=== PATIENT | female | born 1965 | race Two or more races ===

== ENCOUNTER 2016-12-20 10:24 | Emergency (ER) | payer OTHER ==
[~2016-12-20] VITALS: Ht 167.6 cm; Wt 94.3 kg
[~2016-12-20 10:24] MED LIST: BACTRIM DS TAB1 EAC1 ORAL; IBUPROFEN600 MG ORAL; LOSARTAN POTASS50 MG ORAL; METFORMIN HCL500 M1 ORAL; NORCO 5-325 TA1 EACH ORAL; TRICOR145 MG ORAL; VALIUM10 MG ORAL
[2016-12-20 11:01] VITALS: BP 150/111
[2016-12-20] MEDS ORDERED: Ipratropium 0.02% Inh Soln 2.5ml UD HHN ONE (11:15)
[2016-12-20] MEDS ORDERED: Azithromycin 500 MG in NS 275 ML IV ONE (11:15)
[2016-12-20] MEDS ORDERED: fentaNYL 100 mcg/2 mL IV ONE (11:15)
[2016-12-20] MEDS ORDERED: Azithromycin Inj IV ONE (11:28)
[2016-12-20] MEDS: Albuterol ud Inhalation HHN SCH ×3 (11:28→12:34)
[2016-12-20 11:51] LABS: BASOPHILS % (AUTO) 1.2 % (0.0-2.0); EOSINOPHILS % (AUTO) 1.8 % (0.0-3.0); LYMPHOCYTES % (AUTO) 23.1 % (20.0-45.0); MEAN CORPUSCULAR HEMOGLOBIN 31.1 PG (27.0-31.0); MEAN CORPUSCULAR HGB CONC 34.4 G/DL (32.0-36.0); MEAN CORPUSCULAR VOLUME 91 FL (80-99); MEAN PLATELET VOLUME 6.9 FL (6.5-10.1); MONOCYTES % (AUTO) 6.9 % (1.0-10.0); NEUTROPHILS % (AUTO) 67.1 % (45.0-75.0); PLATELET COUNT 251 K/UL (150-450); RED BLOOD COUNT 4.76 M/UL (4.20-5.40); RED CELL DISTRIBUTION WIDTH 12.8 % (11.6-14.8); WHITE BLOOD COUNT 5.1 K/UL (4.8-10.8)
[2016-12-20 11:53] LABS: APPEARANCE,URINE CLEAR; KETONES,URINE NEGATIVE (NEGATIVE); LEUKOCYTE ESTERASE ,URINE NEGATIVE (NEGATIVE); NITRITE,URINE NEGATIVE (NEGATIVE); PH,URINE 6 (4.5-8.0); PROTEIN,URINE 1+ (NEGATIVE); UROBILINOGEN,URINE NORMAL MG/DL (0.0-1.0)
[2016-12-20 11:55] LABS: PROTHROMBIN TIME 10.1 SEC (9.30-11.50)
[2016-12-20 12:02] LABS: ALANINE AMINOTRANSFERASE 33 U/L (3-33); ALBUMIN/GLOBULIN RATIO 1.4 (1.0-2.7); ANION GAP 19 (5-15); ASPARTATE AMINO TRANSFERASE 27 U/L (5-40); CALCIUM 10.1 mg/dL (8.6-10.2); CARBON DIOXIDE 23 mEQ/L (20-30); CHLORIDE 97 mEQ/L (98-107); CREATININE 0.8 mg/dL (0.5-0.9); GLOMERULAR FILTRATION RATE > 60 mL/min (>60); HEMOLYSIS 10; POTASSIUM 3.8 mEQ/L (3.4-4.9); SODIUM 139 mEQ/L (135-145); TOTAL PROTEIN 7.9 g/dL (6.6-8.7); TROPONIN I < 0.30 ng/mL (<=0.30)
[2016-12-20 12:03] LABS: BACTERIA,URINE FEW /HPF; RBC,URINE 0-2 /HPF (0 - 2); SQUAMOUS EPITHELIAL CELL,UR FEW /LPF (NONE/OCC); WBC,URINE 0-2 /HPF (0 - 2)
[2016-12-20 12:05] LABS: REFLEX LACTIC ACID YES OR NO YES
--- NOTE | 2016-12-20 12:29 | Diagnostic Imaging Report ---
Indication: COUGH Technique: Single portable AP view of the chest. Findings: Comparison: 02/08/2015 The bones and extra pulmonary soft tissues, cardiomediastinal silhouette, pulmonary vasculature and parenchyma, and pleural surfaces remain unremarkable. IMPRESSION: Negative portable AP chest, unchanged.
[2016-12-20 13:12] VITALS: BP 111/65
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
[2016-12-20] MEDS ORDERED: Oxycodone/Acetaminophen 5-325 ORAL ONE (14:30)
[2016-12-20 15:18] VITALS: BP 132/83
--- NOTE | 2016-12-20 15:34 | Diagnostic Imaging Report ---
Indications: Chest pain Technique: Continuous helical CT imaging of the thorax was performed with automatic exposure control, following bolus intravenous administration of nonionic iodine contrast, on a Siemens sensation [address] scanner. Axial images reconstructed at 3 mm slice thickness and 1.5 mm interval. Coronal and sagittal images were reconstructed at 3 mm slice thickness. Coronal and sagittal two-dimensional maximum intensity projection and three-dimensional volume-rendered images were reconstructed on a stand alone workstation. CTDI volume(s): 13x2, 45 mGy Total DLP: 1192 mGy-cm Findings: Comparison: Chest radiograph 02/08/2015 The main pulmonary artery, right and left pulmonary arteries, and pulmonary artery branches to the level of third order branching are patent and well-opacified. No intraluminal filling defects are demonstrated. Thoracic aorta and great vessels are patent and well-opacified, normal in caliber and configuration. No evidence of aneurysm, dissection, or leak. Heart normal size. No pericardial abnormality. No mediastinal or hilar enlarged lymph nodes, other abnormal mass or fluid collection. Lungs are symmetrically inflated, left greater than right. Elevation of right hemidiaphragm with overlying linear densities. Patchy groundglass opacities in both lung bases. No pleural abnormality. Chest wall soft tissues nonfocal. Small osteophytes in the thoracic spine. Liver parenchyma diffusely decreased attenuation. IMPRESSION: No evidence of pulmonary embolism Pulmonary bibasal patchy groundglass opacities--atelectasis versus edema versus inflammation Chronic elevation right hemidiaphragm with overlying subsegmental atelectasis versus scarring Hepatic steatosis Mild degenerative spondylosis
[2016-12-20] MEDS ORDERED: ALBUTEROL SULF8.5 GM INH (15:55)
[2016-12-20] MEDS ORDERED: IBUPROFEN600 MG ORAL (15:55)
[2016-12-20] MEDS ORDERED: HYDROCODONE-HOMA5 ML PO (15:55)
[2016-12-20] MEDS ORDERED: AZITHROMYCIN250 MG ORAL (15:55)
[2016-12-20 16:12] VITALS: BP 132/79
--- NOTE | 2016-12-22 15:51 | Cardiology Report ---
APPROVED REPORT EKG Measurement Heart [id number] Sinus tachycardia Nonspecific T wave abnormality Abnormal ECG
== END 2016-12-20 16:16 | disposition home or self-care (01) ==
LOC: EMR 11:13
DX: J02.9 Acute pharyngitis, unspecified (principal); J98.01 Acute bronchospasm; R07.9 Chest pain, unspecified; I10 Essential (primary) hypertension; E11.9 Type 2 diabetes mellitus without complications
CPT/HCPCS: 36415; 71010; 71275; 80053; 81003; 83605; 84484; 85025; 85610; 85730; 93005; 94640; 94664; 96360; 96361; 96374; 96375; 99284; J0456; J2405; J3010; J7050; Q9967

== ENCOUNTER 2017-03-11 19:01 | Emergency (ER) | payer OTHER ==
[~2017-03-11] VITALS: Ht 167.6 cm; Wt 95.3 kg
[~2017-03-11 19:01] MED LIST changes: +ALBUTEROL SULF8.5 GM INH; +AZITHROMYCIN250 MG ORAL; +HYDROCODONE-HOMA5 ML PO
[2017-03-11] MEDS ORDERED: CYCLOBENZAPRINE10 MG ORAL (19:20)
[2017-03-11] MEDS ORDERED: CEPHALEXIN500 M1 ORAL (19:20)
[2017-03-11] MEDS ORDERED: GLIPIZIDE5 MG ORAL (19:20)
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
[2017-03-11] MEDS ORDERED: Norco 7.5mg/325mg tab ORAL ONE (19:45)
[2017-03-11 19:58] VITALS: BP 161/91
[2017-03-11] MEDS ORDERED: NORCO 5-325 TA1 EACH ORAL (20:38)
[2017-03-11 21:00] VITALS: BP 161/91
--- NOTE | 2017-03-13 09:19 | Diagnostic Imaging Report ---
Indication: Pain 3 views of the left knee were obtained. Findings: There is some irregularity at the tibial spines. The acuity of this finding is unknown. Consider cross-sectional imaging for further evaluation is warranted clinically. There is no joint effusion. Alignment is normal. Impression: Irregularity of the tibial spines. Acuity indeterminate. Consider CT or MR for further evaluation.
== END 2017-03-11 21:00 | disposition home or self-care (01) ==
LOC: EMR 19:49
DX: S83.92XA Sprain of unspecified site of left knee, initial encounter (principal); V49.50XA Passenger injured in collision with unspecified motor vehicles in traffic accident, initial encounter; Y92.410 Unspecified street and highway as the place of occurrence of the external cause; M54.2 Cervicalgia; M54.5 Low back pain; I10 Essential (primary) hypertension; E11.9 Type 2 diabetes mellitus without complications
CPT/HCPCS: 29530; 99283

== ENCOUNTER 2017-04-06 20:25 | Emergency (ER) | payer OTHER ==
[~2017-04-06] VITALS: Ht 170.2 cm; Wt 95.3 kg
[~2017-04-06 20:25] MED LIST changes: +CEPHALEXIN500 M1 ORAL; +CYCLOBENZAPRINE10 MG ORAL; +GLIPIZIDE5 MG ORAL
[2017-04-06 20:34] VITALS: BP 150/91
[2017-04-06] MEDS ORDERED: OFLOXACIN10 ML OP (20:56)
[2017-04-06] MEDS ORDERED: AUGMENTIN 875-1 EAC1 ORAL (20:56)
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
[2017-04-06] MEDS: Augmentin 875mg Tab ORAL ONE (21:12)
[2017-04-06] MEDS: Oxycodone/Acetaminophen 5-325 ORAL ONE (21:12)
[2017-04-06 21:19] VITALS: BP 147/83
== END 2017-04-06 21:20 | disposition home or self-care (01) ==
LOC: EMR 21:04
DX: H60.91 Unspecified otitis externa, right ear (principal); I10 Essential (primary) hypertension; E11.9 Type 2 diabetes mellitus without complications
CPT/HCPCS: 99284

== ENCOUNTER 2017-12-14 13:50 | Emergency (ER) | payer OTHER ==
[~2017-12-14] VITALS: Ht 167.6 cm; Wt 95.3 kg
[~2017-12-14 13:50] MED LIST changes: +AUGMENTIN 875-1 EAC1 ORAL; +OFLOXACIN10 ML OP
[2017-12-14 14:22] VITALS: BP 131/81
[2017-12-14] MEDS ORDERED: METFORMIN HCL1000 M1 ORAL (14:22)
[2017-12-14] MEDS ORDERED: ASPIR 8181 MG ORAL (14:22)
[2017-12-14] MEDS ORDERED: JANUVIA25 MG ORAL (14:22)
[2017-12-14] MEDS ORDERED: VITAMIN D1000 UNI1 ORAL (14:22)
[2017-12-14] MEDS ORDERED: Metoclopramide 10mg/2ml Inj IVP ONE (14:45)
[2017-12-14] MEDS ORDERED: DiphenhydrAMINE 50mg/ml Inj IVP ONE (14:45)
[2017-12-14 14:57] LABS: HEMATOCRIT 42.4 % (37.0-47.0); MEAN CORPUSCULAR VOLUME 85 FL (80-99); PLATELET COUNT 278 K/UL (150-450); RED BLOOD COUNT 4.99 M/UL (4.20-5.40); RED CELL DISTRIBUTION WIDTH 12.9 % (11.6-14.8)
--- NOTE | 2017-12-14 15:05 | Emergency Room Report ---
History of Present Illness General Chief Complaint: Abdominal Pain Source: Patient, Medical Record Present Illness HPI Patient presents with complaints of fairly diffuse abdominal pain Patient reports that on Tuesday she had seafood in [facility] She also had fruit Soon after that began having vomiting and diarrhea She has had multiple episodes of vomiting and diarrhea Diffuse abdominal cramping as well Denies any fevers denies any chest pain or short of breath Pain and cramping is 3 out of 10 patient has had previous cholecystectomy otherwise denies any recent procedures Allergies: Coded Allergies: NO KNOWN ALLERGIES (Unverified Allergy, Unknown, 02/08/15) Patient History Past Medical History: see triage record Pertinent Family History: none Last Menstrual Period: 11/19/17 Reviewed Nursing Documentation: PMH: Agreed; PSxH: Agreed Nursing Documentation-PMH Past Medical History: No History, Except For Hx Hypertension: Yes Hx Diabetes: Yes - Type 2 Review of Systems All Other Systems: negative except mentioned in HPI Physical Exam Vital Signs Date Time Temp Pulse Resp B/P (MAP) Pulse Ox O2 Delivery O2 Flow Rate FiO2 12/14/17 14:15 99.1 118 20 131/81 96 Room Air 99.1 Sp02 EP Interpretation: reviewed, normal General Appearance: no apparent distress Head: normocephalic, atraumatic Eyes: bilateral eye PERRL, bilateral eye EOMI ENT: hearing grossly normal, normal pharynx, TMs + canals normal, uvula midline Neck: full range of motion, supple, no meningismus, no bony tend Respiratory: lungs clear, normal breath sounds, no rhonchi, no respiratory distress, no retraction, no accessory muscle use Cardiovascular #1: normal peripheral pulses, regular rate, rhythm, no edema, no gallop, no JVD, no murmur Gastrointestinal: soft, no mass, no organomegaly, non-distended, no guarding, no hernia, no pulsatile mass, no rebound, other - Hyperactive bowel sounds Genitourinary: no CVA tenderness Musculoskeletal: normal inspection Neurologic: oriented x3, responsive, sticker hand III-XII nml as tested, motor strength/ tone normal, sensory intact Psychiatric: mood/affect normal Skin: normal color, no rash, warm/dry, palpation normal Lymphatic: normal inspection, no adenopathy Medical Decision Making Diagnostic Impression: Primary Impression: Pancreatitis Additional Impressions: Abdominal pain Vomiting Diarrhea ER Course With the history exam and presentation, multiple differentials considered, including but not limited to appendicitis, gastritis, cholecystitis, diverticulitis Given the patient's history of recent food intake and the vomiting and diarrhea likely food borne pathology also entertained Patient shows some shift in the white blood cell count Pancreas showing elevation of lipase Patient's CT does not show any acute pathology Patient has done significantly better after further intervention At this time given the elevated lipase at the discussed with her inpatient stay versus outpatient disposition Patient reports that she has had history of pancreatitis in the past She does feel significantly better and at this time we'll attempt outpatient trial She was put on antibiotics as well given the presentation Labs Test 12/14/17 14:45 White Blood Count 10.0 K/UL (4.8-10.8) Red Blood Count 4.99 M/UL (4.20-5.40) Hemoglobin 14.0 G/DL (12.0-16.0) Hematocrit 42.4 % (37.0-47.0) Mean Corpuscular Volume 85 FL (80-99) Mean Corpuscular Hemoglobin 28.1 PG (27.0-31.0) Mean Corpuscular Hemoglobin Concent 33.1 G/DL (32.0-36.0) Red Cell Distribution Width 12.9 % (11.6-14.8) Platelet Count 278 K/UL (150-450) Mean Platelet Volume 6.6 FL (6.5-10.1) Neutrophils (%) (Auto) % (45.0-75.0) Lymphocytes (%) (Auto) % (20.0-45.0) Monocytes (%) (Auto) % (1.0-10.0) Eosinophils (%) (Auto) % (0.0-3.0) Basophils (%) (Auto) % (0.0-2.0) Differential Total Cells Counted 100 Neutrophils % (Manual) 85 % (45-75) Lymphocytes % (Manual) 8 % (20-45) Monocytes % (Manual) 2 % (1-10) Eosinophils % (Manual) 3 % (0-3) Basophils % (Manual) 0 % (0-2) Band Neutrophils 2 % (0-8) Platelet Estimate Adequate Platelet Morphology Normal Red Blood Cell Morphology Normal Sodium Level 138 MMOL/L (136-145) Potassium Level 4.1 MMOL/L (3.5-5.1) Chloride Level 103 MMOL/L (98-107) Carbon Dioxide Level 27 MMOL/L (21-32) Anion Gap 8 mmol/L (5-15) Blood Urea Nitrogen 19 mg/dL (7-18) Creatinine 0.8 MG/DL (0.55-1.30) Estimat Glomerular Filtration Rate > 60 mL/min (>60) Glucose Level 180 MG/DL (74-106) Calcium Level 8.9 MG/DL (8.5-10.1) Total Bilirubin 0.3 MG/DL (0.2-1.0) Aspartate Amino Transf (AST/SGOT) 15 U/L (15-37) Alanine Aminotransferase (ALT/SGPT) 29 U/L (12-78) Alkaline Phosphatase 81 U/L (46-116) Total Protein 7.5 G/DL (6.4-8.2) Albumin 3.6 G/DL (3.4-5.0) Globulin 3.9 g/dL Albumin/Globulin Ratio 0.9 (1.0-2.7) Lipase 778 U/L (73-393) Rhythm Strip Diag. Results EP Interpretation: yes Rate: 77 Rhythm: NSR, no PVC's, no ectopy CT/MRI/US Diagnostic Results CT/MRI/US Diagnostic Results : Impression CT abdomen pelvisIMPRESSION: Hepatomegaly with fatty infiltration. Small hiatal hernia Status post cholecystectomy Degenerative disc disease L4-5 Last Vital Signs Date Time Temp Pulse Resp B/P (MAP) Pulse Ox O2 Delivery O2 Flow Rate FiO2 12/14/17 14:22 99.1 118 20 131/81 96 Room Air 99.1 Status: improved Disposition: HOME, SELF-CARE Condition: Improved Scripts Acetaminophen With Codeine (T#3) (TYLENOL #3 TAB*) Y Tab 1 TAB ORAL Q8H PRN for For Pain, #10 TAB Prov: LilliandorAleksey DO 12/14/17 Ondansetron Odt* (ZOFRAN ODT*) 4 Mg Tab.rapdis 4 MG ORAL Q6H PRN for Nausea & Vomiting, #15 TAB 0 Refills Prov: LilliandorAleksey DO 12/14/17 Ciprofloxacin Hcl* (CIPROFLOXACIN HCL*) 500 Mg Tablet 500 MG ORAL Q12H, #14 TAB 0 Refills Prov: Aleksey Chand DO 12/14/17 Additional Instructions: Patient is provided with the discharge instructions notified to follow up with primary doctor in the next 2-3 days otherwise return to the er with any worsening symptoms. Please note that this report is being documented using [employer] technology. This can lead to erroneous entry secondary to incorrect interpretation by the dictating instrument. Aleksey Chand DO Dec 14, 2017 15:05
[2017-12-14 15:07] LABS: ANION GAP 8 mmol/L (5-15); BLOOD UREA NITROGEN 19 mg/dL (7-18); CALCIUM 8.9 MG/DL (8.5-10.1); CARBON DIOXIDE 27 MMOL/L (21-32); CHLORIDE 103 MMOL/L (98-107); CREATININE 0.8 MG/DL (0.55-1.30); POTASSIUM 4.1 MMOL/L (3.5-5.1); SODIUM 138 MMOL/L (136-145)
[2017-12-14 15:09] LABS: ALANINE AMINOTRANSFERASE 29 U/L (12-78); ALBUMIN 3.6 G/DL (3.4-5.0); ALBUMIN/GLOBULIN RATIO 0.9 (1.0-2.7); ALKALINE PHOSPHATASE 81 U/L (46-116); ASPARTATE AMINO TRANSFERASE 15 U/L (15-37); BILIRUBIN,TOTAL 0.3 MG/DL (0.2-1.0)
[2017-12-14] MEDS ORDERED: Morphine Sulfate 4mg/ml Inj IVP ONE (15:15)
--- NOTE | 2017-12-14 15:56 | Diagnostic Imaging Report ---
Indication: Abdominal pain Technique: Continuous helical transaxial imaging of the abdomen and pelvis was obtained from the lung bases to the pubic symphysis during intravenous contrast administration. Coronal 2-D reformats were also obtained. Study obtained in a Siemens sensation [address] Automatic Exposure Control was utilized. Total Dose length Product (DLP): 1162.[address] Dose Index Volume (CTDIvol): 19.75 mGy Comparison: None Findings: There is a small hiatal hernia. There is mild generalized density increased at the lung bases likely a gravity dependent phenomena. The liver is enlarged measuring 23 cm and hypodense consistent with fatty rotation. Cholecystectomy noted. Spleen is normal in size and attenuation. The pancreas and kidneys appear unremarkable. There is no adrenal mass. Normal appendix noted. There is no free fluid. Small bilateral ovarian cysts are present. Uterus noted and unremarkable. Bladder is unremarkable. Vacuum phenomena narrowing of the L4-5 disc with endplate spur formation and facet spur formation noted. IMPRESSION: Hepatomegaly with fatty infiltration. Small hiatal hernia Status post cholecystectomy Degenerative disc disease L4-[address] scanner at [facility] is accredited by the [employer] and the scans are performed using dose optimization techniques as appropriate to a performed exam including Automatic Exposure control.
[2017-12-14 16:00] VITALS: BP 122/71
[2017-12-14] MEDS ORDERED: ZOFRAN ODT4 MG ORAL (17:52)
[2017-12-14] MEDS ORDERED: ACETAMINOPHEN-1 EAC1 ORAL (17:52)
[2017-12-14] MEDS ORDERED: CIPROFLOXACIN500 M2 ORAL (17:52)
[2017-12-14 18:00] VITALS: BP 116/78
== END 2017-12-14 18:05 | disposition home or self-care (01) ==
LOC: EMR 14:42
DX: K85.90 Acute pancreatitis without necrosis or infection, unspecified (principal); R19.7 Diarrhea, unspecified; R11.10 Vomiting, unspecified; K44.9 Diaphragmatic hernia without obstruction or gangrene; I10 Essential (primary) hypertension; E11.9 Type 2 diabetes mellitus without complications; Z90.49 Acquired absence of other specified parts of digestive tract; M51.36 Other intervertebral disc degeneration, lumbar region
CPT/HCPCS: 36415; 74177; 80053; 82962; 83690; 85007; 85025; 96361; 96374; 96375; 99284; J1200; J2270; J2765; Q9967

== ENCOUNTER 2018-02-28 17:03 | Emergency (ER) | payer OTHER ==
[~2018-02-28] VITALS: Ht 170.2 cm; Wt 95.3 kg
[~2018-02-28 17:03] MED LIST changes: +ACETAMINOPHEN-1 EAC1 ORAL; +ASPIR 8181 MG ORAL; +CIPROFLOXACIN500 M2 ORAL; +JANUVIA25 MG ORAL; +METFORMIN HCL1000 M1 ORAL; +VITAMIN D1000 UNI1 ORAL; +ZOFRAN ODT4 MG ORAL
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
[2018-02-28] MEDS ORDERED: Ketorolac 30mg Inj IM ONE (18:00)
[2018-02-28] MEDS ORDERED: Methocarbamol 500mg tab ORAL ONE (18:00)
[2018-02-28] MEDS ORDERED: Norco 5mg/325mg tab ORAL ONE (18:00)
[2018-02-28] MEDS ORDERED: TYLENOL EXTRA500 MG ORAL (18:20)
[2018-02-28] MEDS ORDERED: LIDOCAINE700 M1 TP (18:20)
[2018-02-28 18:29] VITALS: BP 138/86
== END 2018-02-28 18:30 | disposition home or self-care (01) ==
LOC: EMR 17:40
DX: G89.29 Other chronic pain (principal); M54.5 Low back pain; I10 Essential (primary) hypertension; E11.9 Type 2 diabetes mellitus without complications
CPT/HCPCS: 96372; 99284; J1885

== ENCOUNTER 2018-05-27 16:21 | Emergency (ER) | payer OTHER ==
[~2018-05-27] VITALS: Ht 167.6 cm; Wt 93.4 kg
[~2018-05-27 16:21] MED LIST changes: +JANUVIA100 MG ORAL; +LIDOCAINE VISC100 ML ORAL; +LIDOCAINE700 M1 TP; +PREDNISONE20 MG ORAL; +PROMETHAZINE-C118 M1 ORAL; +TYLENOL EXTRA500 MG ORAL
[2018-05-27 16:34] VITALS: BP 138/88
[2018-05-27 17:49] LABS: EOSINOPHILS % (AUTO) 1.1 % (0.0-3.0); HEMATOCRIT 41.1 % (37.0-47.0); HEMOGLOBIN 14.1 G/DL (12.0-16.0); LYMPHOCYTES % (AUTO) 22.3 % (20.0-45.0); MEAN CORPUSCULAR VOLUME 85 FL (80-99); MONOCYTES % (AUTO) 4.3 % (1.0-10.0); NEUTROPHILS % (AUTO) 71.3 % (45.0-75.0); PLATELET COUNT 324 K/UL (150-450); RED BLOOD COUNT 4.83 M/UL (4.20-5.40); RED CELL DISTRIBUTION WIDTH 11.3 % (11.6-14.8); WHITE BLOOD COUNT 5.2 K/UL (4.8-10.8)
[2018-05-27 18:15] LABS: ANION GAP 9 mmol/L (5-15); BLOOD UREA NITROGEN 14 mg/dL (7-18); CALCIUM 10.3 MG/DL (8.5-10.1); CARBON DIOXIDE 26 MMOL/L (21-32); CHLORIDE 102 MMOL/L (98-107); CREATININE 0.9 MG/DL (0.55-1.30); POTASSIUM 4.5 MMOL/L (3.5-5.1); SODIUM 137 MMOL/L (136-145)
[2018-05-27 18:19] LABS: ALANINE AMINOTRANSFERASE 45 U/L (12-78); ALBUMIN 4.1 G/DL (3.4-5.0); ALBUMIN/GLOBULIN RATIO 0.9 (1.0-2.7); ALKALINE PHOSPHATASE 104 U/L (46-116); ASPARTATE AMINO TRANSFERASE 30 U/L (15-37); BILIRUBIN,TOTAL 0.5 MG/DL (0.2-1.0)
[2018-05-27 18:34] VITALS: BP 139/81
[2018-05-27] MEDS ORDERED: ZOFRAN4 MG ORAL (18:52)
[2018-05-27 19:00] VITALS: BP 121/77
--- NOTE | 2018-05-28 00:05 | Emergency Room Report ---
History of Present Illness General Chief Complaint: Abnormal Labs Source: Patient Present Illness HPI Patient's 53-year-old female who presented after increased but sugar. Patient prior history of diabetes. She was noted to have the recent increased cough. Patient stated that she had been given breathing treatment and sent in for further evaluation. Patient was noted to be recently started on steroids. She reports having a nonproductive cough Allergies: Coded Allergies: NO KNOWN ALLERGIES (Unverified Allergy, Unknown, 02/08/15) Patient History Past Medical History: see triage record Now: No Reviewed Nursing Documentation: PMH: Agreed; PSxH: Agreed Nursing Documentation-PMH Past Medical History: No History, Except For Hx Hypertension: Yes Hx Diabetes: Yes - DM2 Review of Systems All Other Systems: negative except mentioned in HPI Physical Exam Vital Signs Date Time Temp Pulse Resp B/P (MAP) Pulse Ox O2 Delivery O2 Flow Rate FiO2 05/27/18 16:34 97.8 111 19 138/88 97 Room Air 97.9 Sp02 EP Interpretation: reviewed, normal General Appearance: normal inspection, well appearing, no apparent distress, alert, GCS 15, obese Head: atraumatic ENT: normal ENT inspection, hearing grossly normal, normal voice Neck: normal inspection, full range of motion, supple, no bony tend Respiratory: normal inspection, no respiratory distress, no retraction, wheezing Cardiovascular #1: regular rate, rhythm, no edema Gastrointestinal: normal inspection, normal bowel sounds, non tender, soft, no guarding, no hernia Genitourinary: no CVA tenderness Musculoskeletal: normal inspection, back normal, normal range of motion Neurologic: normal inspection, alert, oriented x3, responsive, research pharmacist III-XII nml as tested, speech normal Psychiatric: normal inspection, judgement/insight normal, mood/affect normal Skin: normal inspection, normal color, no rash Medical Decision Making Diagnostic Impression: Primary Impression: Viral bronchitis Additional Impression: Hyperglycemia ER Course The patient presented for elevated blood sugar. Differential diagnoses included was not limited to bronchitis, pneumonia, asthma, among others.Because of complexity of patient's case laboratory testing and imaging studies were ordered.The patient given IV fluids. The patient noted have some improvement in her blood sugar. She is given breathing treatments. The patient states she felt better. Patient was subsequently discharged home to follow up with primary care physician for further evaluation and treatment. Labs Test 05/27/18 16:56 05/27/18 17:20 White Blood Count 5.2 K/UL (4.8-10.8) Red Blood Count 4.83 M/UL (4.20-5.40) Hemoglobin 14.1 G/DL (12.0-16.0) Hematocrit 41.1 % (37.0-47.0) Mean Corpuscular Volume 85 FL (80-99) Mean Corpuscular Hemoglobin 29.1 PG (27.0-31.0) Mean Corpuscular Hemoglobin Concent 34.2 G/DL (32.0-36.0) Red Cell Distribution Width 11.3 % (11.6-14.8) Platelet Count 324 K/UL (150-450) Mean Platelet Volume 6.3 FL (6.5-10.1) Neutrophils (%) (Auto) 71.3 % (45.0-75.0) Lymphocytes (%) (Auto) 22.3 % (20.0-45.0) Monocytes (%) (Auto) 4.3 % (1.0-10.0) Eosinophils (%) (Auto) 1.1 % (0.0-3.0) Basophils (%) (Auto) 1.0 % (0.0-2.0) Sodium Level 137 MMOL/L (136-145) Potassium Level 4.5 MMOL/L (3.5-5.1) Chloride Level 102 MMOL/L (98-107) Carbon Dioxide Level 26 MMOL/L (21-32) Anion Gap 9 mmol/L (5-15) Blood Urea Nitrogen 14 mg/dL (7-18) Creatinine 0.9 MG/DL (0.55-1.30) Estimat Glomerular Filtration Rate > 60 mL/min (>60) Glucose Level 287 MG/DL (74-106) Calcium Level 10.3 MG/DL (8.5-10.1) Total Bilirubin 0.5 MG/DL (0.2-1.0) Aspartate Amino Transf (AST/SGOT) 30 U/L (15-37) Alanine Aminotransferase (ALT/SGPT) 45 U/L (12-78) Alkaline Phosphatase 104 U/L (46-116) Total Protein 8.5 G/DL (6.4-8.2) Albumin 4.1 G/DL (3.4-5.0) Globulin 4.4 g/dL Albumin/Globulin Ratio 0.9 (1.0-2.7) EKG Diagnostic Results Rate: normal Rhythm: NSR ST Segments: no acute changes Last Vital Signs Date Time Temp Pulse Resp B/P (MAP) Pulse Ox O2 Delivery O2 Flow Rate FiO2 05/27/18 19:00 97.8 99 19 121/77 97 Room Air 208.0 Status: improved Disposition: HOME, SELF-CARE Condition: Stable Scripts Ondansetron (Zofran) 4 Mg Tablet 4 MG ORAL Q6H PRN for Nausea & Vomiting, #30 TAB 0 Refills Prov: Rob Paredes MD 05/27/18 Departure Forms: Return to Work Return to Work in (Days): 3 Patient Instructions: Hyperglycemia, [id number], Acute Bronchitis, Dehydration, Adult Rob aPredes MD May 28, 2018 00:05
== END 2018-05-27 19:00 | disposition home or self-care (01) ==
LOC: EMR 18:03
DX: J20.8 Acute bronchitis due to other specified organisms (principal); E11.65 Type 2 diabetes mellitus with hyperglycemia; R05 Cough; I10 Essential (primary) hypertension
CPT/HCPCS: 36415; 80053; 85025; 96360; 99284

== ENCOUNTER 2019-11-09 21:01 | Emergency (ER) | payer MEDICAID, OTHER ==
[~2019-11-09] VITALS: Ht 167.6 cm; Wt 93.9 kg
[~2019-11-09 21:01] MED LIST changes: +GEMFIBROZIL600 M1 PO; +OMEPRAZOLE20 M3 ORAL; +PEPCID COMPLET1 EACH PO; +UNOBMED; +ZOFRAN ODT8 MG ORAL; +ZOFRAN4 MG ORAL
[2019-11-09 21:16] VITALS: BP 148/88
--- NOTE | 2019-11-09 21:18 | NUR ---
ER Nurse Note: Pt walked in c/o RT wrist pain since 11/07. Pt stated she was grabbing a bottle of detergent and the bottle landed on her RT wrist, bending the fingers backwards. Pt hand, second and thrid digit swollen. Pt can make a fist with RT hand but stated 10/10 pain. Pt able to move fingers with pain. Will continue to [facility].
[2019-11-09] MEDS ORDERED: Acetaminophen 500mg (ES) tab PO ONE (21:30)
--- NOTE | 2019-11-09 21:56 | Diagnostic Imaging Report ---
EXAM: XR Right Hand Complete, 3 or More Views CLINICAL HISTORY: PAIN TECHNIQUE: Frontal, lateral and oblique views of the right hand. COMPARISON: No relevant prior studies available. FINDINGS: Bones/joints: No acute displaced fracture or dislocation. Soft tissues: Soft tissue swelling. No radiopaque foreign body. IMPRESSION: No acute displaced fracture or dislocation.
[2019-11-09] MEDS ORDERED: TYLENOL EXTRA500 MG ORAL (22:14)
[2019-11-09 22:20] VITALS: BP 142/82
--- NOTE | 2019-11-09 22:20 | NUR ---
ED Nurse Note: All orders completed per ERMD orders. Pt cleared by health care Provider for discharge. DC instructions/prescription was given and explained to pt and verbalized understanding of teachings. Instructed pt to follow up with primary care physican within one week. All medical deviecs such as ID band removed. Pt is AAO x4, ambulatory and left with all personal belongings.
--- NOTE | 2019-11-09 22:37 | Emergency Room Report ---
History of Present Illness General Chief Complaint: Upper Extremity Injury Source: Patient Present Illness HPI 54-year-old female presents ED complaining of right hand pain. States that 2 days ago at work heavy laundry detergent fell on her right hand. Notes pain to her second and third knuckles. Throbbing, 7 out of 10, nonradiating. Denies any other injuries. No other aggravating relieving factors. Denies any other associated symptoms Allergies: Coded Allergies: NO KNOWN ALLERGIES (Unverified Allergy, Unknown, 11/28/18) Patient History Past Medical History: DM, HTN Past Surgical History: none Pertinent Family History: none Social History: Denies: smoking, alcohol use, drug use Now: No Immunizations: UTD Reviewed Nursing Documentation: PMH: Agreed; PSxH: Agreed Nursing Documentation-PMH Past Medical History: No History, Except For Hx Hypertension: Yes Hx Diabetes: Yes Review of Systems All Other Systems: negative except mentioned in HPI Physical Exam Vital Signs Date Time Temp Pulse Resp B/P (MAP) Pulse Ox O2 Delivery O2 Flow Rate FiO2 11/09/19 21:06 98.2 101 14 148/88 (108) 97 Room Air Sp02 EP Interpretation: reviewed, normal General Appearance: no apparent distress, alert, GCS 15, non-toxic Head: normocephalic Eyes: bilateral eye normal inspection, bilateral eye PERRL ENT: normal ENT inspection Neck: normal inspection Respiratory: normal inspection Cardiovascular #1: normal inspection Gastrointestinal: normal inspection Rectal: deferred Genitourinary: no CVA tenderness Musculoskeletal: back normal, normal range of motion, gait/station normal, tender - 2nd/3rd knuckles R hand Neurologic: alert, motor strength/tone normal, oriented x3, sensory intact, responsive, speech normal Psychiatric: normal inspection Skin: no rash Lymphatic: normal inspection Medical Decision Making Diagnostic Impression: Primary Impression: Hand contusion Qualified Codes: S60.221A - Contusion of right hand, initial encounter ER Course Hospital Course 54-year-old F presents to ED complaining of R hand pain Differential diagnoses include: Fracture, dislocation, sprain, contusion Clinical course Patient placed on stretcher. After initial history and physical, I ordered pain medications and Xrays of R hand Xrays read shows no acute fracture/dislocation. I discussed findings with patient. Will discharge to home. Safe for discharge for close outpatient follow-up. I will provide referrals Diagnosis - hand contusion Stable and discharged to home with prescription for tylenol. apply ice, keep elevated. weight bear as tolerated. Followup with PMD. Return to ED if symptoms recur or worsen Other X-Ray Diagnostic Results Other X-Ray Diagnostic Results : X-Ray ordered: R hand # of Views/Limited Vs Complete: 3 View Indication: Pain EP Interpretation: Yes Interpretation: no dislocation, no soft tissue swelling, no fractures Impression: No acute disease Electronically Signed by: Electronically signed by Panchito Pepper MD Last Vital Signs Date Time Temp Pulse Resp B/P (MAP) Pulse Ox O2 Delivery O2 Flow Rate FiO2 11/09/19 22:20 98.2 80 16 142/82 98 Room Air Status: improved Disposition: HOME, SELF-CARE Condition: Stable Scripts Acetaminophen* (TYLENOL EXTRA STRENGTH*) 500 Mg Tablet 500 MG ORAL Q8H PRN for Prn Headache/Temp > 101, #30 TAB 0 Refills Prov: Panchito Pepper MD 11/09/19 Referrals: [facility]itha [facility] Open 24 hour /7 days a week by Appointment Only [address] [facility] [address] Departure Forms: Return to Work Return to Work Date: Nov 12, 2019 Work Restrictions: None Patient Instructions: Hand Contusion, [id number] Panchito Pepper MD Nov 09, 2019 22:37
== END 2019-11-09 22:20 | disposition home or self-care (01) ==
LOC: EMR 21:29
DX: S60.221A Contusion of right hand, initial encounter (principal); E11.9 Type 2 diabetes mellitus without complications; I10 Essential (primary) hypertension; W20.8XXA Other cause of strike by thrown, projected or falling object, initial encounter; Y93.89 Activity, other specified; Y92.9 Unspecified place or not applicable
CPT/HCPCS: 73130; Z7502; 99283